=== PATIENT | male | born 1975 | race Caucasian/White ===

== ENCOUNTER → 2020-01-01 | Day surgery (SDC) | payer OTHER ==
[2019-12-29 15:33] LABS: BASOPHILS % 0.3 % (0.0-1.0); EOSINOPHILS # (AUTO) 0.4 (0.0-0.4); EOSINOPHILS % 3.6 % (0.0-6.0); HEMATOCRIT 45.9 % (38.2-49.6); HEMOGLOBIN 15.1 g/dL (14.0-18.0); LYMPHOCYTES # (AUTO) 2.1 (1.0-3.2); LYMPHOCYTES % 19.7 % (18.0-39.1); MEAN CORPUSCULAR HEMOGLOBIN 28.3 pg (28-32); MEAN CORPUSCULAR HGB CONC 32.9 g/dL (31-35); MEAN CORPUSCULAR VOLUME 86.1 fL (81-99); MONOCYTES # (AUTO) 1.1 (0.2-0.8); MONOCYTES % 10.4 % (4.4-11.3); NEUTROPHILS # (AUTO) 6.8 (2.1-6.9); NEUTROPHILS % 65.5 % (38.7-80.0); PLATELET COUNT 196 x10e3/uL (140-360); RED BLOOD COUNT 5.33 x10e6/uL (4.3-5.7); RED CELL DISTRIBUTION WIDTH 12.8 % (11.7-14.4)
[2019-12-29 15:55] LABS: ANION GAP 14.4 mmol/L (8-16); CALCIUM 9.9 mg/dL (8.4-10.2); CREATININE, SERUM 1.47 mg/dL (0.72-1.25); POTASSIUM 4.4 mmol/L (3.5-5.1)
--- NOTE | 2019-12-29 16:13 | Diagnostic Imaging Report ---
Exam: KUB - 2 views Indication: Preoperative Comparison: None Findings: 4 mm calcific density overlying the mid pole of left kidney may represent renal calculus versus intraluminal bowel content. No additional radiographically apparent renal calculi. Nonobstructive bowel gas pattern. No free air. Status post cholecystectomy. No acute osseous injury. Phleboliths in the pelvis. Impression: 4 mm calcific density overlying the mid pole of left kidney may represent renal calculus. Signed by: Harjinder Scanlon MD on 12/29/2019 4:10 PM
[2019-12-29 18:26] LABS: LYMPHOCYTES % (MANUAL) 21 % (19-48); MONOCYTES % (MANUAL) 12 % (3.4-9.0); NEUTROPHILS % (MANUAL) 67 % (40-74); PLATELET ESTIMATE ADEQUATE; PLATELET MORPHOLOGY COMMENT NORMAL; RBC MORPHOLOGY COMMENT NORMAL
[~2020-01-01] MED LIST: ACETAMINOPHEN/CODEINE 300MG - 30MG TAB ONE; B&O 60MG R/S 60 MG SUPP PR ONE; CEFTRIAXONE SOD 1 GM/NS 50 ML 50 ML IV ONE; FAMOTIDINE 20 MG/2 ML VIAL IV ONE; FENTANYL CITRATE/PF 100MCG/2 ML INJ ONE; IOPAMIDOL 300MG/ML 50ML INFUS..BTL IV ONE; LEVOTHYROXINE75 MCG PO; LIDOCAINE HCL 2% LOCAL INJ 5 ML SDV VIAL INJ ONE; MIDAZOLAM HCL 2 MG/2 ML VIAL ONE; ONDANSETRON HCL INJ 2MG/ML 2ML 2 MG/ML VIAL ONE; PRILOSEC OTC20 MG PO; PROPOFOL IV EMULSION 10 MG/ML 20 ML VIAL ONE; SEVOFLURANE INHAL SOLN 250 ML PEN BTL ONE
[2020-01-01 09:45] VITALS: BP 116/80
--- NOTE | 2020-02-08 01:26 | Operative Report ---
DATE OF PROCEDURE: 01/01/2020 SURGEON: Zaire Amezquita MD PREOPERATIVE DIAGNOSES: 1. Nephrolithiasis. 2. Chronic renal insufficiency. POSTOPERATIVE DIAGNOSES: 1. Nephrolithiasis. 2. Chronic renal insufficiency. OPERATIONS PERFORMED: Note, these were all staged procedures as part of multistaged and multistep process in managing the patient's urolithiasis. 1. Left-sided extracorporeal shockwave lithotripsy (separate procedure performed for the left nephrolithiasis). 2. Cystourethroscopy with bilateral ureteral catheterization and retrograde ureteropyelography (separate procedure performed for the chronic renal insufficiency). 3. Interpretation of retrograde ureteropyelography. 4. Supervision of fluoroscopy, no radiologist present. ANESTHESIA: General. COMPLICATIONS: None. CLINICAL SUMMARY: Sachin Conteh is a 44-year-old man with urolithiasis and chronic renal insufficiency. He has a previous history of perineal trauma. He was brought for lithotripsy and retrograde ureteropyelography. The patient's history and physical was noting that there was a right stone; however, the KUB and prior other imaging clearly shows the stones on the left. Therefore, we were performing the correct procedure. The patient is aware of the risks of bleeding, infection, injury to adjacent structures, need for additional procedures, and elected to proceed. The patient had a history of perineal trauma in 2019. He also has BPH and urge incontinence and some enuresis in addition to his chronic renal insufficiency. OPERATIVE PROCEDURE IN DETAIL: Informed consent was verified. Sachin Conteh was properly identified, taken to the operating room, placed on the lithotripsy table in supine position. Anesthesia was uneventfully begun. The patient's left nephrolithiasis was localized with biplanar fluoroscopy. A total of 3000 shocks were delivered with fragmentation noted. The patient was then carefully and gently repositioned in dorsal lithotomy position with all pressure points well padded. His genitalia were prepared and draped in usual sterile fashion. The cystoscope sheath with visual obturator in place was atraumatically inserted into the patient's urethra, was guided unremarkable urethra through the normal sphincteric region through the prostate bed, which was significant for visually obstructing BPH and into the patient's bladder, where panendoscopy revealed no suspicious mucosal lesions, no tumors, no stones. Trabeculations were noted. The ureteral catheter was used to cannulate each ureter and retrograde ureteropyelograms were performed. Interpretation of retrograde ureteropyelography contrast was instilled in retrograde fashion bilaterally. There was no sign of stone on the right-hand side. In the left mid calyx, there was the region where we performed lithotripsy. There were multiple filling defects corresponding to stone fragments as well as blood clots. Nevertheless, there was no hydronephrosis. Unobstructed drainage was observed bilaterally fluoroscopically. The patient's bladder was drained and cystoscope was withdrawn. Belladonna and opium suppository were placed revealing a 20 g prostate that is smooth, nonfluctuant without any nodules. The patient was then uneventfully reversed from anesthesia and taken to recovery room in stable condition. There were no complications to the procedure. He tolerated the procedure well. Explicit postop instructions were given. We will follow the patient up in the office. MD PAT Lin/GERRI /[id number]
== END | disposition home or self-care (01) ==
LOC: OR 05:50
PROVIDERS: ATTEND Urology
DX: N20.0 Calculus of kidney (principal); I12.9 Hypertensive chronic kidney disease with stage 1 through stage 4 chronic kidney disease, or unspecified chronic kidney disease; N18.9 Chronic kidney disease, unspecified; N39.41 Urge incontinence; N32.89 Other specified disorders of bladder; N40.1 Benign prostatic hyperplasia with lower urinary tract symptoms; N13.8 Other obstructive and reflux uropathy; E03.9 Hypothyroidism, unspecified; Z01.810 Encounter for preprocedural cardiovascular examination; Z01.812 Encounter for preprocedural laboratory examination; Z01.818 Encounter for other preprocedural examination; Z11.59 Encounter for screening for other viral diseases; Z87.891 Personal history of nicotine dependence
CPT/HCPCS: 36415; 50590; 74018; 80048; 83970; 84550; 85025; 87635; 93005; C1758; J0696; J2001; J2250; J2405; J2704; J3010; Q9967; U0002

== ENCOUNTER → 2020-03-04 | Day surgery (SDC) | payer OTHER ==
[2020-03-01 10:13] LABS: BASOPHILS % 0.4 % (0.0-1.0); EOSINOPHILS # (AUTO) 0.6 (0.0-0.4); EOSINOPHILS % 11.2 % (0.0-6.0); HEMATOCRIT 48.2 % (38.2-49.6); HEMOGLOBIN 15.5 g/dL (14.0-18.0); LYMPHOCYTES # (AUTO) 1.3 (1.0-3.2); LYMPHOCYTES % 25.6 % (18.0-39.1); MEAN CORPUSCULAR HEMOGLOBIN 28.4 pg (28-32); MEAN CORPUSCULAR HGB CONC 32.2 g/dL (31-35); MEAN CORPUSCULAR VOLUME 88.4 fL (81-99); MONOCYTES # (AUTO) 0.5 (0.2-0.8); MONOCYTES % 9.9 % (4.4-11.3); NEUTROPHILS # (AUTO) 2.7 (2.1-6.9); NEUTROPHILS % 52.7 % (38.7-80.0); PLATELET COUNT 212 x10e3/uL (140-360); RED BLOOD COUNT 5.45 x10e6/uL (4.3-5.7); RED CELL DISTRIBUTION WIDTH 12.8 % (11.7-14.4)
[2020-03-01 10:28] LABS: ANION GAP 16.6 mmol/L (8-16); CALCIUM 10.2 mg/dL (8.4-10.2); CREATININE, SERUM 1.35 mg/dL (0.72-1.25); POTASSIUM 4.6 mmol/L (3.5-5.1)
[~2020-03-04] MED LIST changes: -ACETAMINOPHEN/CODEINE 300MG - 30MG TAB ONE; +DEXAMETHASONE SOD PHOS INJ 4 MG/ML VIAL ONE; -FAMOTIDINE 20 MG/2 ML VIAL IV ONE; -FENTANYL CITRATE/PF 100MCG/2 ML INJ ONE; +GENTAMICIN 80MG/NS 100 ML 200 ML IV ONE; -MIDAZOLAM HCL 2 MG/2 ML VIAL ONE
[2020-03-04 16:00] VITALS: BP 131/81
--- NOTE | 2020-03-05 03:52 | Operative Report ---
DATE OF PROCEDURE: 03/04/2020 SURGEON: Zaire Amezquita MD PREOPERATIVE DIAGNOSES: 1. Obstructive benign prostatic hypertrophy. 2. Chronic renal insufficiency. POSTOPERATIVE DIAGNOSES: 1. Obstructive benign prostatic hypertrophy. 2. Chronic renal insufficiency. OPERATION PERFORMED: Note, these procedures were no where related to the patient's performance of extracorporeal shock wave lithotripsy and not part of the global coverage for that procedure. 1. Cystourethroscopy with bilateral ureteral catheterization and retrograde ureteropyelography (separate procedure performed for the chronic renal insufficiency). 2. Interpretation of retrograde ureteropyelography. 3. Supervision of fluoroscopy, no radiologist present. 4. Cystourethroscopy with transurethral implantation of 4 UroLift implants. ANESTHESIA: General. COMPLICATIONS: None. CLINICAL SUMMARY: Sachin Conteh Junior is a 44-year-old man with obstructive BPH symptomatology. He was brought for the above procedure. He is aware of the risks of bleeding, infection, injury to adjacent structures, need for additional procedures, and elected to proceed. OPERATIVE PROCEDURE IN DETAIL: Informed consent was verified. Sachin Conteh Junior was properly identified, taken to the operating room, and placed on the cystoscopy table in supine position. Anesthesia was uneventfully begun. The patient was then carefully and gently repositioned in the dorsal lithotomy position with all pressure points well padded. His genitalia were prepared and draped in usual sterile fashion. A 22.5-Slovenian cystoscope sheath with a visual obturator in place was atraumatically inserted into the patient's urethra, was guided unremarkable urethra through normal sphincteric region through the prostate bed, which was significant for bilobar prostatic hypertrophy with kissing lateral lobes and elevated median bar, but no median lobe. We entered the patient's bladder, where there were mild trabeculation, but no tumors, no stones, and no diverticula, normally positioned configured ureteral orifices were identified. Ureteral catheter was used to cannulate each ureter and retrograde ureteropyelograms were performed. Interpretation of retrograde ureteropyelography contrast was instilled in retrograde fashion bilaterally. There were no tumors, no stones, and no diverticula. Unobstructed drainage was observed bilaterally fluoroscopically. There was a hint that the patient's kidneys are slightly small. The cystoscope was withdrawn. The UroLift cystoscope sheath was then atraumatically placed under direct vision with visual obturator in place. We then deployed 4 UroLift implants. All implants were deployed anterolaterally, 2 were placed on either side, 1.5 cm distal to the bladder neck and 2 were placed on either side at the level of the verumontanum. This resulted in a continuous anterior channel, which was continuously open anterior channel. The patient's bladder was drained and cystoscope was withdrawn. Belladonna and opium suppository were placed revealing a 35 g prostate, smooth and nonfluctuant without any nodules. The patient was then uneventfully reversed from anesthesia and taken to recovery room in stable condition. There were no complications to the procedure and he tolerated the procedure well. Plans will be to bring the patient back to the office in several weeks to perform uroflowmetry and evaluate his voiding. MD PAT Lin/GERRI /[id number]
== END | disposition home or self-care (01) ==
LOC: OR 11:18
PROVIDERS: ATTEND Urology
DX: N40.0 Benign prostatic hyperplasia without lower urinary tract symptoms (principal); N13.8 Other obstructive and reflux uropathy; I12.9 Hypertensive chronic kidney disease with stage 1 through stage 4 chronic kidney disease, or unspecified chronic kidney disease; N18.9 Chronic kidney disease, unspecified; N32.89 Other specified disorders of bladder; E03.9 Hypothyroidism, unspecified; K21.9 Gastro-esophageal reflux disease without esophagitis; K44.9 Diaphragmatic hernia without obstruction or gangrene; Z01.810 Encounter for preprocedural cardiovascular examination; Z01.812 Encounter for preprocedural laboratory examination; Z11.59 Encounter for screening for other viral diseases
CPT/HCPCS: 52005; C9740; 36415; 74420; 80048; 85025; 93005; C1758; C1769; J0696; J1100; J1580; J2001; J2405; L8699; U0002